=== PATIENT | female | born 1980 | race Caucasian/White ===

== ENCOUNTER 2022-04-30 13:26 | Outpatient (CLI) | payer BC, SELFPAY | END 2022-04-30 13:27 | disposition home or self-care (01) | LOC: NFLDREF 13:26 | PROVIDERS: PCP Internal Medicine; Visit Provider Internal Medicine | DX: Z01.419 Encounter for gynecological examination (general) (routine) without abnormal findings (principal); N92.0 Excessive and frequent menstruation with regular cycle; Z12.4 Encounter for screening for malignant neoplasm of cervix; Z11.3 Encounter for screening for infections with a predominantly sexual mode of transmission | CPT/HCPCS: 87624; 88175 ==

== ENCOUNTER 2022-05-31 14:42 | Outpatient (CLI) | payer BC, SELFPAY ==
--- NOTE | 2022-05-31 15:00 | CRLHL7_ITS ---
For Patients: As a result of the Century Cures Act, medical imaging exams and procedure reports are released immediately into your electronic medical record. You may view this report before your referring provider. If you have questions, please contact your health care provider. INDICATION: EXCESSIVE AND FREQUENT MENSTRUATION COMPARISON: none TECHNIQUE: 2D miranda scale and color Doppler images were acquired of the pelvis using a transabdominal and transvaginal approach. FINDINGS: Sonographic images demonstrate a normal size and smooth outer contour of the uterus. Uterus measures 7.5 cm in length by 4.5 cm in AP diameter by 5.5 cm in transverse dimension. The myometrium has a heterogeneous echotexture. There is a small intramural fibroid in the uterine fundus measuring 6 x 7 x 6 millimeters. A small posterior uterine fibroid is also present measuring 8 x 6 x 7 millimeters. The endometrial lining measures 4 mm in composite thickness. The right ovary measures 2.8 x 1.8 x 2.5 cm in size and the left ovary measures 2.8 x 1.9 x 2.1 cm. Right paraovarian cyst is present measuring 10 x 7 x 8 millimeters. The ovaries demonstrate normal arterial and venous blood flow on color Doppler analysis. There are no suspicious fluid collections within the cul-de-sac. Mild pelvic free fluid noted. IMPRESSION: Small intramural fibroids measuring 7 millimeters and 8 millimeters. Endometrial thickness 4 millimeters. Dictated by Fredi Myers MD @ 05/31/2022 3:35:17 PM (Electronically Signed)
== END 2022-05-31 14:43 | disposition home or self-care (01) ==
LOC: US 14:42
PROVIDERS: PCP Internal Medicine; Visit Provider Obstetrics & Gynecology
DX: N93.9 Abnormal uterine and vaginal bleeding, unspecified (principal); D25.1 Intramural leiomyoma of uterus; R93.89 Abnormal findings on diagnostic imaging of other specified body structures
CPT/HCPCS: 76830; 76856

== ENCOUNTER 2022-12-07 15:02 | Outpatient (CLI) | payer BC, SELFPAY ==
--- NOTE | 2022-12-07 15:20 | CRLHL7_ITS ---
For Patients: As a result of the Century Cures Act, medical imaging exams and procedure reports are released immediately into your electronic medical record. You may view this report before your referring provider. If you have questions, please contact your health care provider. BILATERAL SCREENING MAMMOGRAM WITH COMPUTER-AIDED DETECTION AND TOMOSYNTHESIS TECHNIQUE: CC and MLO views were obtained. These mammographic images have been obtained using full-field digital technique. These mammographic images were interpreted with the benefit of computer-aided detection. Breast Tomosynthesis was used in this interpretation. COMPARISON FILM: 11/29/21, 09/12/20, 09/04/19. FINDINGS: The breasts are heterogeneously dense, which may obscure small masses IMPRESSION: There is no radiographic evidence for malignancy. ASSESSMENT: BI-RADS Category 2: Benign RECOMMENDATION: Routine screening mammogram in 1 year. A lay language report of this examination will be provided to the patient. Fredi Myers M.D. Diagnostic Radiologist [email or web address] CHING/vinay Transcribed: 1:26 p.mCarter mclean/Dictated by: Fredi Myers MD @ 12/10/2022 12:38:00 PM (Electronically Signed)
== END 2022-12-07 15:03 | disposition home or self-care (01) ==
LOC: MAMMO 15:04
PROVIDERS: PCP Family Medicine; Visit Provider Family Medicine
DX: Z12.31 Encounter for screening mammogram for malignant neoplasm of breast (principal); R92.2 Inconclusive mammogram
CPT/HCPCS: 77063; 77067

== ENCOUNTER 2023-09-11 12:49 | Inpatient (IN) | payer BC, SELFPAY ==
[2023-09-10] VITALS (25 sets, daily range): BP systolic 111–155; BP diastolic 57–92; PULSE 77–93; RESP 12–18; TEMP 36.1–37.2; O2SAT 90–100; BMI 26.6
--- OUTSIDE RECORDS SUMMARY | 2023-09-10 07:08 | XMS_ITS | Patient Health Record ---
Author Name Unknown Organization [facility] Address [address] [place] [address] Care Team Providers [facility] Receptionist Name Role Phone None, No PCP Primary Care Provider Unavailrohit Saldaña Azeb Unavailable [phone] OsvaldoBrian Unavailable [phone] ZuleikaRober shultz Unavailable [phone] ALLERGIES No Known Allergies RESULTS Component Value Reference Range Notes ESTRADIOL Reviewed date:04/18/2023 01:42:10 PM Interpretation: Performing Lab:JALIL TykoonCathie Azmx5491 [facility] Carlos A IczyJK[address] Ovidio Hanna Notes/Report: 0; 0; 0; 0; 0; 0; 0; 0; 0; 0 ESTRADIOL 81 Reference Range Follicular Phase: 19-144 Mid-Cycle: 64-357 Luteal Phase: 56-214 Postmenopausal: < or = 31 Reference range established on post-pubertal patient population. No pre-pubertal reference range established using this assay. For any patients for whom low Estradiol levels are anticipated (e.g. males, pre-pubertal children and hypogonadal/post-menopausal females), the [facility] Estradiol, Ultrasensitive, LCMSMS assay is recommended (order code 56860). Please note: patients being treated with the drug fulvestrant (Faslodex(R)) have demonstrated significant interference in immunoassay methods for estradiol measurement. The cross reactivity could lead to falsely elevated estradiol test results leading to an inappropriate clinical assessment of estrogen status. [facility] order code [id number], Ultrasensitive LC/MS/MS demonstrates negligible cross reactivity with fulvestrant. DHEA SULFATE Reviewed date:04/18/2023 01:42:10 PM Interpretation: Performing Lab:JALIL ARC [facility] Devicese[address], TrovixJedjEX[address] Ovidio Hanna Notes/Report: 0; 0; 0; 0; 0; 0; 0; 0; 0; 0 DHEA SULFATE 237 15-205 mcg/dL DHEA-S values fall with advancing age. For reference, the reference intervals for 31-40 year old patients are: Male: 93-415 mcg/dL Female: 19-237 mcg/dL FSH Reviewed date:04/18/2023 01:42:10 PM Interpretation: Performing Lab:JALIL ARC [facility] Devicese[address] [address], [place] OfmbOU[address] Ovidio Hanna Notes/Report: 0; 0; 0; 0; 0; 0; 0; 0; 0; 0 FSH 4.6 Reference Range Follicular Phase 2.5-10.2 Mid-cycle Peak 3.1-17.7 Luteal Phase 1.5- 9.1 Postmenopausal 23.0-116.3 LH Reviewed date:04/18/2023 01:42:10 PM Interpretation: Performing Lab:JALIL ARC [facility]e13[address], [place] ZurdDO[address] Ovidio Hanna Notes/Report: 0; 0; 0; 0; 0; 0; 0; 0; 0; 0 LH 1.6 Reference Range Follicular Phase 1.9-12.5 Mid-Cycle Peak 8.7-76.3 Luteal Phase 0.5-16.9 Postmenopausal 10.0-54.7 PROLACTIN Reviewed date:04/18/2023 01:42:10 PM Interpretation: Performing Lab:JALIL TykoonTwonese1355 [address] [employer], [place] UwfyWJ[address] Ovidio Hanna Notes/Report: 0; 0; 0; 0; 0; 0; 0; 0; 0; 0 PROLACTIN 15.9 Reference Range Females Non- 3.0-30.0 10.0-209.0 Postmenopausal 2.0-20.0 CORTISOL, TOTAL Reviewed date:04/18/2023 01:42:10 PM Interpretation: Performing Lab:JALIL [employer], TrovixDsmrQM[address] Ovidio Hanna Notes/Report: 0; 0; 0; 0; 0; 0; 0; 0; 0; 0 CORTISOL, TOTAL 11.0 Reference Range: For 8 a.m.(7-9 a.m.) Specimen: 4.0-22.0 Reference Range: For 4 p.m.(3-5 p.m.) Specimen: 3.0-17.0 * Please interpret above results accordingly * TSH Reviewed date:04/18/2023 01:42:10 PM Interpretation: Performing Lab:JALIL Ty[facility]-[employer] Qlkm8149 [facility] HospitalOjmvNN[address] Ovidio Hanna Notes/Report: 0; 0; 0; 0; 0; 0; 0; 0; 0; 0 TSH 1.50 Reference Range > or = 20 Years 0.40-4.50 Ranges First trimester 0.26-2.66 Second trimester 0.55-2.73 Third trimester 0.43-2.91 SEX HORMONE BINDING GLOBULIN Reviewed date:04/18/2023 01:42:10 PM Interpretation: Performing Lab:JALIL TykoonTwonese1355 [facility] HospitalUrbhHE[address] Ovidio Hanna Notes/Report: 0; 0; 0; 0; 0; 0; 0; 0; 0; 0 SEX HORMONE BINDING GLOBULIN 77 17-124 nmol/ L TESTOSTERONE, TOTAL, LC/MS/M S Reviewed date:04/22/2023 04:02:06 PM Interpretation: Performing Lab:Angelita [facility]-ZzcOjyapu[address] [place] [address], [facility] 1100[facility] HospitalYnnezpzzpbHN[address] Donny Lundberg MD Notes/Report: 0; 0; 0; 0; 0; 0; 0; 0; 0; 0 TESTOSTERONE, TOTAL, MS 17 2-45 ng/dL For additional information, please refer to https://education.Y-Klub/faq/TotalTestosteroneLCMSMS (This link is being provided for informational/educational purposes only.) (Note) This test was developed and its analytical performance characteristics have been determined by [employer]. It has not been cleared or approved by the FDA. This assay has been validated pursuant to the CLIA regulations and is used for clinical purposes. med fusion [address] [address],[address] [facility] [address] Donny Lundberg MD TESTOSTERONE, FREE Reviewed date:04/22/2023 04:02:06 PM Interpretation: Performing Lab:Z3E, MedFusion-[address]jt[address] [address], [address], UwleedgsujJP[address] Donny Lundberg MD Notes/Report: 0; 0; 0; 0; 0; 0; 0; 0; 0; 0 TESTOSTERONE, FREE 1.0 0.2-5.0 pg/mL (Note) The concentration of free testosterone is derived from a mathematical model using total testosterone by LCMSMS, sex hormone binding globulin and albumin. This test was developed and its analytical performance characteristics have been determined by [facility]. It has not been cleared or approved by the FDA. This assay has been validated pursuant to the CLIA regulations and is used for clinical purposes. MD med fusion [address] [address],[address] [facility] [address] Donny Lundberg MD ESTRADIOL Reviewed date:07/09/2023 12:05:00 PM Interpretation: Performing Lab:Danica JIMENES-Carlos A Fyqw3786 [facility] HospitaleIL[address] Ovidio Hanna Notes/Report: 0; 0; 0 ESTRADIOL 39 Reference Range Follicular Phase: 19-144 Mid-Cycle: 64-357 Luteal Phase: 56-214 Postmenopausal: < or = 31 Reference range established on post-pubertal patient population. No pre-pubertal reference range established using this assay. For any patients for whom low Estradiol levels are anticipated (e.g. males, pre-pubertal children and hypogonadal/post-menopausal females), the [facility] Estradiol, Ultrasensitive, LCMSMS assay is recommended (order code 91910). Please note: patients being treated with the drug fulvestrant (Faslodex(R)) have demonstrated significant interference in immunoassay methods for estradiol measurement. The cross reactivity could lead to falsely elevated estradiol test results leading to an inappropriate clinical assessment of estrogen status. Ty[facility] order code [id number], Ultrasensitive LC/MS/MS demonstrates negligible cross reactivity with fulvestrant. FSH Reviewed date:07/09/2023 12:05:00 PM Interpretation: Performing Lab:Danica JIMENES-Carlos [address], Carlos A ZajvFI[address] Ovidio Hanna Notes/Report: 0; 0; 0 FSH 7.3 Reference Range Follicular Phase 2.5-10.2 Mid-cycle Peak 3.1-17.7 Luteal Phase 1.5- 9.1 Postmenopausal 23.0-116.3 TESTOSTERONE, TOTAL, LC/MS/M S Reviewed date:07/09/2023 12:05:00 PM Interpretation: Performing Lab:Angelita Med[facility]-NydOdpbhr3464 [facility] [address], [address], IvcogototzKE[address] Donny Lundberg MD Notes/Report: 0; 0; 0 TESTOSTERONE, TOTAL, MS 57 2-45 ng/dL For additional information, please refer to https://education.Indigeo Virtuscom/faq/TotalTestosteroneLCMSMS (This link is being provided for informational/educational purposes only.) (Note) This test was developed and its analytical performance characteristics have been determined by [employer]. It has not been cleared or approved by the FDA. This assay has been validated pursuant to the CLIA regulations and is used for clinical purposes. APRIL med fusion [address] [address],[address] [facility] [address] Donny Lundberg MD REASON FOR REFERRAL No Information MEDICATIONS Medication SIG (Take, Route, Frequency, Duration) Notes Start Date End Date Status flovent HFA Active buPROPion HCl 150 mg Active Prometrium 200 MG 1 capsule Orally at bedtime starting mid cycle and stop when period starts for 90 days 06/26/2023 Active Lexapro 10 MG 1 tablet Orally Once a day for 90 days 05/13/2023 Active Nexplanon 68 MG as directed Subcutaneous removed March 2023 Active Testosterone cream 5mg / 2 clicks apply 2 clicks daily Active Ventolin HFA Active Magnesium Glycinate 665 MG as directed Orally Active SOCIAL HISTORY Tobacco Use: Social History Observation Description Date Details (start date - stop date) Never Smoker NA - NA Sex Assigned At : Social History Observation Description Sex Assigned At Unknown Tobacco Use/Smoking Question Answer Notes Are you a nonsmoker Alcohol Screen (Audit-C) Question Answer Notes Did you have a drink containing alcohol in the p ast year? Yes Points 0 Interpretation Negative PROBLEMS Problem Type ICD Code Onset Dates Problem Status W/U Status Risk SNOMED Code Notes Problem Adenomyosis (N80.0) Active confirmed Endometriosis o f uterus (73317536) Problem PMS (premenstrual syndrome) (N94.3) Active confirmed 37660602 Problem Menopausal and perimenopausal disorder (N95.9) Active confirmed Menopausal and postmenopausal disorders (783368378) Problem Ovarian cyst (N83.209) Active confirmed Ovarian cyst (83325691) Problem Myoma (D21.9) Active confirmed Myoma (5525828350) Problem Menopausal problem (N95.9) Active confirmed Menopausal problem (60547131) Problem Mild anxiety (F41.9) Active confirmed Mild anxiety (95609479) Problem Adenomyosis (N80.03) Active confirmed VITAL SIGNS Blood pressure diastolic 92 mm Hg 05/22/2023 Height 66.50 in 05/22/2023 Blood pressure systolic 142 mm Hg 05/22/2023 Weight 169.8 lbs 05/22/2023 BMI 26.99 kg/m2 05/22/2023 Encounters Encounter Location Date Provider Diagnosis [facility] [address] [place] [address] 06/07/2023 [facility] [address] [place] [address] 03/11/2023 [facility] [address] [place] [address] 03/11/2023 [facility] [address] [place] [address] 05/14/2023 [facility] [address] [place] [address] 06/04/2023 [facility] [address] [place] [address] 07/02/2023 [facility] [address] [place] [address] 07/04/2023 [facility] [address] [place] [address] 07/09/2023 [facility] [address] [place] [address] 05/22/2023 Rober To Myoma D21.9 ; Adenomyosis N80.03 and Ovarian cyst N83.209 [facility] [address] [place] [address] 06/18/2023 [facility] Menopausal and perimenopausal disorder N95.9 [facility] [address] [facility] [place] [address] 04/17/2023 [facility] Menopausal problem N95.9 [facility] [address] [place] [address] 05/13/2023 [facility] Pelvic pain R10.2 [facility] [address] [place] [address] 05/13/2023 [facility] Menopausal and perimenopausal disorder N95.9 ; Fibroids D21.9 and Mild anxiety F41.9 [facility] [address] [place] [address] 06/25/2023 [facility] [address] [place] [address] 05/01/2023 [facility] Menopausal and perimenopausal disorder N95.9 [facility] [address] [place] [address] 06/26/2023 Brian Riley Mild anxiety F41.9 ; Menopausal and perimenopausal disorder N95.9 ; Fibroids D21.9 ; PMS (premenstrual syndrome) N94.3 and Tiredness R53.83 [facility] [address] [place] [address] 03/14/2023 [facility] Nexplanon in place Z97.5 [facility] [address] [place] [address] 03/14/2023 [facility] ASSESSMENTS Encounter Date Diagnosis Assessment Notes Treatment Notes Treatment Clinical Notes 05/22/2023 Myoma (ICD-10 - D21.9) 05/22/2023 Adenomyosis (ICD-10 - N80.03) 05/13/2023 Menopausal and perimenopausal disorder (ICD-10 - N95.9) 05/13/2023 Pelvic pain (ICD-10 - R10.2) 05/01/2023 Menopausal and perimenopausal disorder (ICD-10 - N95.9) Detailed discussion with patient regarding lab results and current symptoms. Discussed with patient recommendation for pelvic US to assess current state of fibroids prior to initiation of HRT. Will plan for a follow up visit after the US to review report and further explore options for testosterone replacement. Patient verbalizes agreement to the plan of care. This visit was conducted with the use of audio and video telecommunications system that permits real time communication between the patient and provider. Patient consent for virtual visit was obtained. Originating Site: [facility] Site: patient home Start Time: 799 End Time: 827. Time spent on patient care included, review of previous records, preparation for visit, reviewing labs, ordering imaging, documenting visit, direct face to face time with patient to obtain relevant history, and discussion of plan of care. Total time was 35 minutes. 03/14/[address] (ICD-10 - Z97.5) Detailed discussion with patient to review her symptoms. She states that she was not having the intense mood issues until she had the Nexplanon placed. She states that she no longer desires to have the Nexplanon and she would like to have it removed. She is aware that she can schedule a removal here or with the provider that placed the Nexplanon for her. She is encouraged to track her symptoms after removal and she can always follow up to discuss hormones or options to control her bleeding. Patient verbalizes understanding to the plan care. Time spent on patient care included, review of previous records, preparation for visit, documenting visit, direct face to face time with patient to obtain relevant history, and discussion of plan of care. Total time was 45 minutes. 06/26/2023 Menopausal and perimenopausal disorder (ICD-10 - N95.9) 06/26/2023 Mild anxiety (ICD-10 - F41.9) 06/18/2023 Menopausal and perimenopausal disorder (ICD-10 - N95.9) 05/22/2023 Ovarian cyst (ICD-10 - N83.209) 06/26/2023 Fibroids (ICD-10 - D21.9) 04/17/2023 Menopausal problem (ICD-10 - N95.9) 05/13/2023 Fibroids (ICD-10 - D21.9) 05/13/2023 Mild anxiety (ICD-10 - F41.9) 06/26/2023 PMS (premenstrual syndrome) (ICD-10 - N94.3) 06/26/2023 Tiredness (ICD-10 - R53.83) 05/22/2023 Other 25 minutes spen t on the date of the encounter doing chart review, history and exam, documentation and further activities per the note 06/26/2023 Other Keep T cream same - or can add 1 add'l click if she would like to trial Refill Lexapro Add luteal phase progesterone 200mg, day start day 14-16 until menses for PMS Add Vitex/chaste tree chen 250mg daily, work up [id number] max Add fish oil 3000mg daily for PMS/cramps REcheck testosterone in 8-12 weeks; if still having fatigue call ahead and will add vit D, ferritin, B12, folate, CBC, CMP, A1-c This visit was conducted with the use of audio and video telecommunications system that permits real time communication between the patient and provider. Patient consent for virtual visit was obtained. Originating site: [facility] location Distant site: pt home Start time: 0800 Stop time: 08 f/u with dr. To as planned, f/u with me 2-3 mos3 min visit prep; 22 min video visit, 7 min documentation PLAN OF TREATMENT No Information Insurance Providers Payer Name Payer Address Payer Phone Subscriber Number Group Number Insured Name Patient Relationship to Insured Coverage Start Date Coverage End Date [employer]BS [address] [address] [place], [place] [id number] Yojana Murrell Self - patient is the insured MEDICAL (GENERAL) HISTORY Medical History History ICD Code asthma depression Uterine fibroids Surgical History Surgery Date(Month/Year) MCL/ACL/Meniscus 11/2020 myomectomy 06/2021
[2023-09-10] MEDS: LACTATED RINGERS 1000 ML 1,000 ML 100 ML IV ×2 (07:33→10:06)
[2023-09-10] MEDS: SODIUM CHLORIDE 0.9 % (FLUSH) 10 ML SYRINGE IVF (07:33)
[2023-09-10 07:50] LABS: Hemoglobin* 13.6 gm/dL (12.0-16.0)
[2023-09-10 07:55] LABS: Ur HCG Qualitative* Negative (Negative)
[2023-09-10 08:09] LABS: Creatinine* 0.7 mg/dL (0.5-1.5); Est. Creatinine Clearance* 103.46; Estimated Glomerular Filt Rate 109 ml/min
--- NOTE | 2023-09-10 08:48 | W.PM.H&PU ---
History & Physical Update History & Physical Update H&P Reviewed and patient assessed: No changes noted
[2023-09-10] MEDS: CEFAZOLIN 2 GM INJ IVP (09:10)
[2023-09-10] MEDS: BUPIVACAINE 0.5% 30 ML INJECTION ×2 (09:32→09:52)
--- NOTE | 2023-09-10 11:16 | SUR.OPER ---
Call placed to family, update given.
--- NOTE | 2023-09-10 12:32 | PM.PROC ---
Procedure Note Time Seen by Provider: 12:32 Date Seen: 09/10/23 Date of procedure: 09/10/23 Will [facility] bill your pro fee for this procedure?: Yes Procedure: PREOPERATIVE DIAGNOSIS: Yojana is a 42-year-old with uterine fibroids, PMS and severe dysmenorrhea. POSTOPERATIVE DIAGNOSIS: Same. NAME OF PROCEDURE: 1. Lipoma removal 2. Attempted laparoscopic hysterectomy converted to total abdominal hysterectomy. 3. Bilateral salpingo oophorectomy 4. Lysis of adhesions SURGEON: Yudy Santamaria MD SIZE TESTER: Daina Lewis MD CONSULTING SURGEON: Patricia Luciano MD ANESTHESIA: General endotracheal. Local. ESTIMATED BLOOD LOSS: 400 ml URINE OUTPUT: 200 mL clear urine at the end of the procedure IV FLUID: 1500 mL DRAINS: Parnell to gravity. FINDINGS: On exam under anesthesia there was a the 2 x 3 cm cystic mass verses lipoma on the upper inner right thigh that was removed. Uterus palpated less than 10 week size mobile without masses palpable which sounded to 10 cm. No adnexal mass or fullness palpable. On laparoscopy there were multiple loops of intestine adherent to the anterior abdominal wall which made the laparoscopy untenable. On laparotomy there were thick adhesions of the rectus muscles to the anterior abdominal wall and this took 60 minutes of time to take down all the adhesions and obtain hemostasis from the started the procedure to entering the abdominal cavity. PROCEDURE: After obtaining informed consent, the patient was taken to the operating room where general anesthesia was obtained without difficulty. She was prepared and draped in the normal sterile fashion in the dorsal lithotomy position. A Parnell catheter was inserted sterilely into the bladder Attention was turned to performing the lipoma removal. The base of the lipoma was instilled with 0.5% Marcaine without epinephrine. In eyelet-shaped incision was made around the base of the lipoma and the lipoma was then removed. Subcutaneous tissue was reapproximated using 4-0 Monocryl interrupted sutures. The skin was repaired using 4-0 Monocryl in a running subcuticular manner. Exofin adhesive gel was then applied. Attention was turned to performing the laparoscopic portion of the procedure. A sterile, bivalve, open-sided speculum was placed in the vaginal canal to visualize the cervix. The cervix was grasped with a long Allis clamp in the uterus sounded to 10 cm. A large [employer] uterine manipulator was then placed. All incisions were instilled with 0.5% Marcaine prior to making skin incision. A vertical, 1 cm infraumbilical incision was made. A 11. Trocar was then placed under direct visualization with the laparoscoped. Findings were stated above. The decision was made to convert to a laparotomy. The trocar was removed the CO2 gas allowed to escape this trocar prior to its removal. The fascia was reapproximated using 0 Vicryl on a UR6 needle. The skin incision was repaired with 4-0 Vicryl in a running subcuticular manner and Exofin skin adhesive was applied. Attention was then turned performing the laparotomy. Prior to making the skin incision, it was injected with 10 mL of 0.50% Marcaine. A Pfannenstiel skin incision was made with a scalpel. This incision was carried down to the underlying layer of fascia with the Bovie. The fascia was incised in the midline and the incision extended laterally. The superior and inferior aspects of the fascial incision were grasped with Cori clamps and the underlying rectus muscles dissected off sharply. The rectus muscles were in the midline. The underlying peritoneum was identified and entered bluntly. The peritoneal incision was extended superiorly and inferiorly with good visualization of the bladder. Adhesions of the sigmoid colon to the anterior abdominal wall were then identified and this is when Dr. Luciano was consulted to perform the lysis of adhesions of the sigmoid colon and loop of the mid ileum was performed. Please see her note for complete details. The patient was placed in some mild Trendelenburg positioning. The bowels were packed cephalad using a large moistened laparotomy sponge. The Tyson O retractor was placed in the incision. This provided excellent visualization of the pelvis. The pelvis was inspected with the findings noted above. Holly clamps were placed at the cornua bilaterally for traction. Both ureters were identified along their courses within the pelvic sidewall by palpation by palpation, patient body habitus made limited visualization. The left round ligament was doubly clamped with Cori clamps, transected, and suture ligated with 0 Vicryl. The anterior leaf of the broad ligament was opened to the midline from the right side. Down to the level of the cervix. The posterior leaf of the broad ligament was then divided using bipolar cautery. The left fallopian tube and ovary were elevated with Stevo clamps. The infundibulopelvic ligament was doubly Justine clamped, divided and doubly suture ligated with 0 Vicryl suture. The left tube and ovary were removed to promote visualization and the pedicle ligated with a fore-after stitch using 0 Vicryl. Excellent hemostasis was identified. The uterine vessels were skeletonized on the left side. The vessels were clamped across with a Justine and a straight clamp, transected, and suture ligated. Excellent hemostasis was obtained. Attention was then turned to the right side. The right round ligament was clamped with 2 Cori clamps, transected, and suture ligated with 0-Vicryl. The anterior leaf of the broad ligament was opened from the right side to the midline. The bladder flap was then created bluntly. The bladder was further pushed caudally with a sponge stick. The right posterior leaf of the broad ligament was opened and the infundibulopelvic ligament doubly Justine clamped, divided and doubly suture ligated with 0 Vicryl suture. Hemostasis was visualized. The right uterine vessels were skeletonized and then clamped across with Justine clamps, transected, and suture ligated. Excellent hemostasis was obtained. At this point the enlarged uterus was removed from the cervix using Barney scissors. The cervix was then grasped with 2 Cori clamps. The remaining cardinal and uterosacral ligament attachments on both sides were clamped with straight Justine clamps adjacent to the lower uterine segment and cervix, transected and suture ligated with 0 Vicryl. Excellent hemostasis was obtained. Two Justine clamps were placed across the vaginal cuff angles. The uterus with attached cervix was then transected and passed off the field. The vaginal cuff angles were fixed with Justine stitches of 0 Vicryl. The intervening vaginal cuff was closed with [id number]-[id number]-mnwzu sutures of 0 Vicryl. The abdomen and pelvis were then copiously irrigated. Small bleeding vessels were isolated with DeBakey clamps and cauterized for hemostasis. Roma was applied to the vaginal cuff to obtain hemostasis. All laparotomy sponges, bowel pack and instruments were then removed. The subfascial tissues were carefully inspected and hemostasis assured. The fascia was re-approximated in a running fashion with a looped 0 Maxon suture. The subcutaneous tissues were copiously irrigated and hemostasis assured. The subcutaneous adipose layer was re-approximated in layers using 3-0 plain gut interrupted sutures. The skin was closed in a subcuticular fashion with 4-0 Monocryl. Exofin skin adhesive and a Mepilex dressing applied. The patient tolerated the procedure well. Sponge, lap, needle, instrument counts were reported as correct x2. The patient was taken to recovery room awake and in stable condition. She received 2 g of IV Ancef preoperatively. PATHOLOGY SPECIMEN(S): 1. Lipoma. 2. Uterus with cervix, bilateral tubes and ovaries
--- NOTE | 2023-09-10 12:57 | W.ANESCHARGE ---
Anesthesia Charges Start Date/Time Anesthesia Start Date: 09/10/23 Anesthesia Start Time: 09:02 Stop Date/Time Anesthesia Stop Date: 09/10/23 Anesthesia Stop Time: 12:55
[2023-09-10] MEDS: fentaNYL 100 MCG/2 ML inj 50 MCG IVP (13:15)
[2023-09-10] MEDS: HYDROmorphone 0.5 mg/0.5 ml inj IVP ×2 (13:16→15:16)
--- NOTE | 2023-09-10 13:16 | W.PM.NB ---
Nerve Block Nerve Block Time Seen by Provider: 09:19 Date Seen: 09/10/23 Type of block requested by surgeon for post-operative analgesia: TAP Side: bilateral Time out performed: Yes Verification of patient name: Yes Verification of date of : Yes Site marking: site marked Name of person performing procedure: Jose G Continuous monitoring Was continuous monitoring of O2 sat, B/P, cardiac/vascular sonographer, recorded every 15 minutes?: Yes Procedure Checklist: sterile prep, needles and gloves Ultrasound guided. Images saved: Yes Medications given in 5ml increments after negative aspiration: Marcaine %: 0.25 mL: 30 Needle gauge: 20 and Exparel mL: 10 Patient tolerated procedure well: Yes Additional comments: Needle noted between internal oblique and transversus abdominus. Local spread visualized Block Charges Block Charge (with Pro Fee): TAP Bilateral Use of Ultrasound Machine for Block: Yes- US Guidance/pain block
--- NOTE | 2023-09-10 13:17 | W.ANESCHARGE ---
Anesthesia Charges Start Date/Time Anesthesia Start Date: 09/10/23 Anesthesia Start Time: 09:02 Stop Date/Time Anesthesia Stop Date: 09/10/23 Anesthesia Stop Time: 12:55
--- NOTE | 2023-09-10 13:41 | PM.GSPRC ---
Operative Note Date of procedure: 09/10/23 Type of Procedure: 1. Intraoperative consult for lysis of adhesions. Procedure Description: Patient was undergoing laparoscopic converted to open hysterectomy. During opening the abdomen adhesions of the large intestine and small intestine to the abdominal wall were noted. These adhesions were dense and general surgery was requested to assist with lysis of adhesions. When I entered the room, the patient was already under general anesthesia. A Pfannenstiel incision was already made and abdomen was entered with sigmoid colon visualized through the abdominal incision. The sigmoid colon was adherent to the right side of the abdominal peritoneum. These adhesions were taken down with Metzenbaum scissors. When the sigmoid colon was free, I examined the serosa. No serosal tears were noted. I then palpated the peritoneum of the abdominal wall and a segment of small intestine was adherent on the right. There appeared to be a small fascial opening suggestive of abdominal wall hernia. Small intestine was attached in this area. This segment of small intestine was then mobilized off the abdominal wall with Metzenbaum scissors. These adhesions were fairly dense. When the small intestine was free, I examined the small intestine. A serosal tear was noted. This was oversewn with interrupted 3-0 silk sutures is using Lambert stitches. The small bowel was palpated and was patent. This was located approximately mid ileum. The remainder of the abdominal wall adjacent to the Phannesteil incision was palpated and no additional adhesions were noted. At this time I left the operating room and OBGYN surgeons continued with the rest of the procedure. Surgeon: Isabell Haro MD Estimated blood loss (mL): 1 Condition: stable Disposition: no change
[2023-09-10] MEDS: LACTATED RINGERS 1000 ML 1,000 ML 125 ML IV (13:50)
--- NOTE | 2023-09-10 14:33 | PC.NURSE ---
Pt was sating at 89%-91% Room Air when she is sleeping. When she is awake and talking pt is sating around 96%-100%. RN placed pt on 2L Nasal Cannula. RN also let Dr. Santamaria know that pt is on 2L of oxygen.
[2023-09-10] MEDS: KETOROLAC 30 MG/ML inj IVP ×2 (16:02→22:26)
[2023-09-10] MEDS: ACETAMINOPHEN 500 MG TABLET 1000 MG PO (20:42)
[2023-09-10] MEDS: MONTELUKAST 10 MG TABLET PO (20:42)
[2023-09-11] VITALS (7 sets, daily range): BP systolic 103–128; BP diastolic 65–72; PULSE 80–87; RESP 16–18; TEMP 36.6–37.5; O2SAT 95–99
[2023-09-11] MEDS: KETOROLAC 30 MG/ML inj IVP ×3 (04:01→16:19)
[2023-09-11 05:28] LABS: Hemoglobin* 11.4 gm/dL (12.0-16.0)
[2023-09-11] MEDS: ACETAMINOPHEN 500 MG TABLET 1000 MG PO ×3 (07:53→20:41)
[2023-09-11] MEDS: OXYCODONE 5 MG TABLET PO ×3 (07:53→20:41)
--- NOTE | 2023-09-11 08:31 | P.GYNPN_ITS ---
SENIOR PROJECT CONTROLS SPECIALIST - A/P Postoperative Procedures: Procedures Operation Date: 09/10/23 08:40 Actual Procedure Side Surgeon p Lipoma Removal, Attempted Total Laparoscopic Hysterectomy, Converted to Total Abdominal Hysterectomy, Lysis of Adhesions, Bilateral Salpingectomy-Oophorectomy Yudy Santamaria MD s Lysis of Adhesions Not Applicable Isabell Haro MD Time Spent With Patient Time: Total time spent is greater than 50% in coordination of care (as documented) at patient's floor/unit and/or counseling patient: Time with patient: less than 15 minutes SENIOR PROJECT CONTROLS SPECIALIST- PN:Subj Post-Op Subjective Time Seen by Provider: 08:10 Date Seen: 09/11/23 Post Operative Details: Subjective: Yojana is a 42-year-old 0 para 0 who is postop day [] from a total abdominal hysterectomy, bilateral salpingo oophorectomy, lysis of adhesions for symptomatic uterine fibroids, severe dysmenorrhea and premenstrual syndrome. She is doing well today. She states her pain is well controlled. She is tolerating regular diet. She denies nausea/vomiting. She is urinating without difficulty. Has had adequate urine output. She has been ambulating without difficulty. She is not passing flatus. Objective: General: Pleasant, , well groomed woman in no acute distress. Vital signs: Per electronic medical record Heart: Regular rate and rhythm without gallop, rub or murmur. Chest: Clear to auscultation bilaterally. Abdomen: Soft, nontender, mildly distended. No CVA or flank tenderness. Incision: Dressing removed. Incision clean, dry and intact with sutures and skin adhesive gel Extremities: No pain or edema Assessment: 38-year-old postoperative day# 1 from a total abdominal hysterectomy, bilateral salpingo oophorectomy, lysis of adhesions. Plan: 1. Continue routine postop care. 2. Planning discharge home tomorrow 3. Ordered a Pulmicort nebulizing treatment b.i.d. as the patient is out of her Advair inhaler. SENIOR PROJECT CONTROLS SPECIALIST-PN: Obj Exam Physical Exam: Vital signs: Temp Pulse Resp BP Pulse Ox O2 Del Method O2 Flow Rate 98.1 F 80 16 128/72 96 Room Air 2 09/11/23 07:56 09/11/23 07:56 09/11/23 07:56 09/11/23 07:56 09/11/23 07:56 09/11/23 07:56 09/10/23 17:41 Urinary Catheter Management: 2-way Urethral: Cath placed during this visit: yes Urethral indwelling: No Reason for continuing: surgical procedure Insertion date: 09/10/23 Insertion time: 09:32 SENIOR PROJECT CONTROLS SPECIALIST - PN: Obj Data Labs Labs: Laboratory Results - last 24 hr 09/10/23 09/11/23 07:41 05:20 Hgb 11.4 L Blood Type A Negative Antibody Screen NEGATIVE
[2023-09-11] MEDS: estradioL 1 MG TABLET PO (09:19)
[2023-09-11] MEDS: ESCITALOPRAM 10 MG TABLET 15 MG PO (09:19)
[2023-09-11] MEDS: buPROPion XL 150 MG TABLET PO (09:20)
[2023-09-11] MEDS: BUDESONIDE 0.25 MG/2 ML AMPUL.NEB NEB ×2 (09:23→20:41)
--- NOTE | 2023-09-11 10:22 | RESP.RT ---
Budesonide nebulizer treatment given with on demand nebulizer with mouth piece and 0xygen flow meter at 6 Lpm. Patient used treatment well. Discussed with patient use of extension with her MDI's and gave patient extension. Discussed timing of puffs, waiting at least a minute between. Information given on dry power Advair and use. Patient very knowledgeable about her respiratory medications and asked appropriate questions.
[2023-09-11] MEDS: MONTELUKAST 10 MG TABLET PO (20:42)
[2023-09-12] MEDS: IBUPROFEN 600 MG TABLET PO ×2 (00:13→08:38)
[2023-09-12 00:14] VITALS: BP 118/81; PULSE 76; RESP 16; TEMP 36.5; O2SAT 99
[2023-09-12 03:33] VITALS: BP 113/74; PULSE 98; RESP 14; TEMP 36.8; O2SAT 96
[2023-09-12] MEDS: ACETAMINOPHEN 500 MG TABLET 1000 MG PO (03:36)
[2023-09-12] MEDS: OXYCODONE 5 MG TABLET PO ×2 (03:36→08:39)
--- NOTE | 2023-09-12 07:57 | P.DS_ITS ---
DS: Providers Provider Time Seen by Provider: 07:58 Date Seen: 09/12/23 Date of admission: 09/11/23 12:49 Primary care physician: Evelyn Morales MD Admitting Clinician: Yudy Santamaria MD Attending Physician on discharge: Yudy Santamaria MD Date of Discharge: 09/12/23 DS: Diagnosis Discharge Diagnosis (1) Intramural uterine fibroid: Status: Acute (2) Dysmenorrhea: Status: Acute (3) Premenstrual syndrome: Status: Acute (4) Menorrhagia: Status: Acute (5) Status post total abdominal hysterectomy and bilateral salpingo- oophorectomy: Status: Acute OIL WELL PUMPER-Discharge Summary Hospital Course Hospital Course Narrative: Hospital Course: Yojana was admitted to the hospital on [date] for a scheduled JANESSA/BSO/EDIE. Her surgery was uncomplicated. Her postoperative course was also uncomplicated. By postoperative day 2, she was tolerating a regular diet, ambulating without difficulty, passing flatus and pain was well controlled with oral pain medications. She would like to be discharged home today. Labs: Preoperative hemoglobin 13.6, postoperative hemoglobin 11.4. Objective: General: Alert and oriented x3. Pleasant, woman in no acute distress. Vital signs: See EMR. Heart: Regular rate and rhythm without gallop, rub or murmur. Chest: Clear to auscultation bilaterally. Abdomen: Soft, nontender, nondistended with normal bowel sounds throughout. No CVA or flank tenderness. Incision(s): Clean, dry and intact w/ sutures and skin adhesive. Pelvic: Minimal vaginal bleeding, remainder of pelvic exam deferred. Extremities: No pain, edema, cyanosis or clubbing. Assessment: 42-year-old postoperative day 2 from a total abdominal hysterectomy, bilateral salpingo oophorectomy, lysis of adhesions, doing well. Plan: 1. Discharge home today. 2. Activity restrictions reviewed with the patient. 3. Return to clinic to see Dr. Santamaria for a postoperative visit in 2-3 weeks Na 2nd postoperative visit at approximately 6 weeks postop. Time Spent with Patient Time attestation: Total time spent providing and/or coordinating discharge services: Time spent: Less than 30 minutes OIL WELL PUMPER - Exam Physical Exam: Vital signs: Temp Pulse Resp BP Pulse Ox O2 Del Method O2 Flow Rate 98.2 F 98 14 113/74 96 Room Air 2 09/12/23 03:33 09/12/23 03:33 09/12/23 03:33 09/12/23 03:33 09/12/23 03:33 09/12/23 03:33 09/10/23 17:41 OIL WELL PUMPER - DS: Data Procedures Procedures: Procedures Operation Date: 09/10/23 08:40 Actual Procedure Side Surgeon p Lipoma Removal, Attempted Total Laparoscopic Hysterectomy, Converted to Total Abdominal Hysterectomy, Lysis of Adhesions, Bilateral Salpingectomy-Oophorectomy Yudy Santamaria MD s Lysis of Adhesions Not Applicable Isabell Haro MD Discharge Plan Discharge Disposition: Home, Self-Care Date of Admission: 09/11/23 12:49 Primary Care Provider: Evelyn Morales Condition: Stable Anticipated Discharge Date/Time: 09/12/23 10:30 Discharge Medications: New docusate sodium 100 mg Capsule 100 mg PO BID PRN (Reason: Constipation) Qty: 100 0RF ibuprofen 600 mg Tablet 600 mg PO Q6H PRN (Reason: Pain) Qty: 30 0RF oxycodone 5 mg Tablet 5 mg PO 3XD PRN (Reason: Moderate Pain) Qty: 21 0RF estradiol 0.1 mg/24 hr patch semiweekly 1 patch transdermal 2XW Qty: 24 4RF Rx Instructions: apply 1 patch for 3 days alternating with 1 patch for 4 days each week for 3 wks per 4-wk cycle Continued escitalopram oxalate 10 mg tablet 10 mg PO DAILY testosterone 50 mg/5 gram (1 %) gel 1 tube transdermal QAM escitalopram oxalate 5 mg tablet 5 mg PO QDAY melatonin 5 mg capsule 10 mg PO .Bedtime as needed PRN multivitamin Tablet 1 tab PO QDAY tretinoin 0.05 % cream 1 applic topical ONCE montelukast 10 mg tablet 10 mg PO .Bedtime Qty: 90 3RF fluticasone propionate 50 mcg/actuation spray,suspension 2 spray intranasal DAILY Qty: 16 6RF bupropion HCl 150 mg tablet extended release 24 hr 150 mg PO QAM fluticasone propion-salmeterol [Advair Diskus] 250-50 mcg/dose blister with device 1 inh INHALATION BID albuterol sulfate [Ventolin HFA] 90 mcg/actuation HFA aerosol inhaler 2 puff inhalation Q4-6H PRN (Reason: shortness of breath or wheezing) Qty: 8 10RF Discontinued peg 3350-electrolytes [Golytely] 236-22.74-6.74 -5.86 gram recon soln 240 ml PO Q15M Qty: 4000 0RF Rx Instructions: until fecal effluent is clear Discharge Orders: Discharge Order (Routine); Ordered 09/12/23 Ordered By: Yudy Santamaria Patient Education: Menopause (GEN), Hysterectomy (DC) Additional Instructions: ACTIVITY RESTRICTIONS: * Nothing vaginally for 6 weeks: no tampons/intercourse * No driving while taking narcotic pain medication during the day. 1-2 weeks. Okay to be the passenger anytime. * Lifting restriction: Maximum of 20 pounds for 6 weeks. * High impact or core exercises: 6 weeks. * Submerge the incisions in water (bath/pool/nagy): 2 weeks. * Off of work/school for a minimum of 6 weeks NO RESTRICTIONS for: * Walking or other low impact exercise * Going up/down stairs * Showering Symptoms to report to your doctor * Bleeding that is red, like a moderate period * Passing clots larger than the size of a golf ball * Pain not relieved by prescribed medication * Fever above 100.4 degrees Fahrenheit * A foul vaginal odor * Decrease in urination or painful, frequent urinating * Chest pain * Shortness of breath * Tenderness or pain with redness and/swelling in the calf(s) of your leg Follow-up Appointments: 1. [facility] 2-3 weeks for an incision check. 2. A 6 week postop visit to verify that the vaginal cuff is well-healed. Activity Detail: See activity restrictions above. Discharge Diet: Regular Follow Up Appointments: Evelyn Morales MD [Primary Care Provider] - Yudy Santamaria MD [Staff Physician] - Forms: Work/School Release
[2023-09-12 08:30] VITALS: BP 116/73; PULSE 82; RESP 16; TEMP 36.7; O2SAT 97
[2023-09-12] MEDS: ESCITALOPRAM 10 MG TABLET 15 MG PO (08:38)
[2023-09-12] MEDS: buPROPion XL 150 MG TABLET PO (08:38)
[2023-09-12] MEDS: estradioL 1 MG TABLET PO (08:38)
[2023-09-12] MEDS: BUDESONIDE 0.25 MG/2 ML AMPUL.NEB NEB (08:38)
== END 2023-09-12 09:11 | disposition home or self-care (01) | DRG 519 ==
LOC: OR 15:07 → OB 15:07
PROVIDERS: Obstetrics & Gynecology; Surgery; Admitting Provider Obstetrics & Gynecology; PCP Family Medicine; Visit Provider Obstetrics & Gynecology
PROC: 0UT94ZZ Resection of Uterus, Percutaneous Endoscopic Approach (ICD-10-PCS; principal; 2023-09-10 08:30)
PROC: 0DNW0ZZ Release Peritoneum, Open Approach (ICD-10-PCS; CPT 56740; 2023-09-10 08:30)
DX: D25.1 Intramural leiomyoma of uterus (principal); N92.0 Excessive and frequent menstruation with regular cycle; N94.3 Premenstrual tension syndrome; N94.6 Dysmenorrhea, unspecified; K66.0 Peritoneal adhesions (postprocedural) (postinfection); G89.18 Other acute postprocedural pain; Z53.31 Laparoscopic surgical procedure converted to open procedure; D17.23 Benign lipomatous neoplasm of skin and subcutaneous tissue of right leg
CPT/HCPCS: 00840; 36415; 64488; 76942; 81025; 82565; 85018; 86850; 86900; 86901; 88304; 88307; 94640; A9270; J0330; J0665; J0690; J1100; J1170; J1200; J1630; J1885; J2405; J2704; J3010; J3475; J3490; J7120; J7626

== ENCOUNTER 2024-04-21 11:01 | Outpatient (CLI) | payer BC, SELFPAY ==
--- OUTSIDE RECORDS SUMMARY | 2024-04-21 11:04 | XMS_ITS | Clinical Summary ---
Author Organization [facility] Address [place], [place] [address] Care Team Providers Care Snipper Name Role Phone Andrew, Evelyn Carrillo MD Primary Care Provider Geri Hernandez MD Unavailable [phone] Allergies Active Allergy Reactions Criticality Noted Date Comments Cats (Fur, Dander, Saliva) 8 House Dust 02/24/2008 Mold Extracts 02/24/2008 Homeopathic Products 02/24/2008 Medications Medication Sig Dispensed Refills Start Date End Date Status pirbuterol (MAXAIR AUTOHALER) 200 mcg/Inhalation inhalerIndications :Severe persistent asthma Inhale 2 Puffs by mouth. As needed 14 g 0 10/10/2010 Active MAXAIR AUTOHALER 200 mcg/Inhalation inhalerIndications :Unspecified asthma(493.90) INHALE 2 PUFFS NEEDED 14 g 0 04/29/2011 Active pirbuterol (MAXAIR AUTOHALER) 200 mcg/Inhalation inhalerIndications :Moderate persistent asthma Inhale 2 Puffs by mouth 3 times daily if needed for Wheezing. 14 g 6 04/30/2011 Active CETIRIZINE HCL (ZYRTEC ORAL) Take by mouth. Active montelukast (SINGULAIR) 10 mg tablet Take 10 mg by mouth at bedtime. 03/07/2022 Active Lexapro 10 mg tablet Take 10 mg by mouth. 05/13/2023 Active escitalopram oxalate (LEXAPRO) 5 mg tabletIndications: Anxiety Take 1 Tablet (5 mg) by mouth every morning. Take with 10 mg for total daily dose 15 mg. 90 Tablet 3 08/19/2023 Active estradiol 0.075 mg/24 hr SEMIWEEKLY patch Apply on dry, clean, hairless skin. 09/12/2023 Active tretinoin 0.01 % gel Apply topically to affected area(s). 04/30/2022 Active albuterol HFA (ProAir HFA) 90 mcg/actuation inhalerIndications :Asthma, unspecified asthma severity, unspecified whether complicated, unspecified whether persistent Inhale 2 Puffs by mouth every 4 hours if needed for Shortness Of Breath or Wheezing. 8.5 g 01/16/2024 Active polyethylene glycol-electrolyte (GOLYTELY) 236-22.74-6.74 -5.86 gram suspensionIndicati ons:Encounter for screening colonoscopy Drink 2 liters (half the bottle) the day before colonoscopy and 2 liters (remaining prep) 6 hours prior to colonoscopy appointment. 4000 mL 01/21/2024 Active doxycycline 100 mg capsuleIndications :Acute non-recurrent maxillary sinusitis,Moderate persistent asthma with exacerbation Take 1 Capsule (100 mg) by mouth two times daily. 10 Capsule 02/13/2024 Active fluticasone propion-salmeteroL (ADVAIR) 250-50 mcg/Dose diskus inhalerIndications :Moderate persistent asthma without complication Inhale 1 Puff by mouth two times daily. 60 Each 11 03/16/2024 Active fluticasone (50 mcg per actuation) nasal solution (FLONASE)Indicatio ns:Seasonal allergic rhinitis, unspecified trigger Inhale 1 [place] to both nostrils two times daily. 48 g 2 04/20/2024 Active fluticasone (50 mcg per actuation) nasal solution (FLONASE)Indicatio ns:Seasonal allergic rhinitis, unspecified trigger Inhale 1 [place] to both nostrils two times daily. 16 g 11 04/04/2023 Discontinue d(Reorder (E-cancel not sent)) Active Problems Problem Noted Date Diagnosed Date Thyroid nodule 08/06/2022 Overview: 9 mm, recheck 07/2023 Moderate persistent asthma without complication 07/25/2022 Severe persistent asthma 10/10/2010 Allergic rhinitis, cause unspecified 03/04/2009 Resolved Problems Problem Noted Date Diagnosed Date Resolved Date Unspecified asthma(493.90) 02/24/2008 0 10/10/2010 Encounters Date Type Department Care Team Description 04/17/2024 Refill [facility] [address] [place] [address] Evelyn Morales MD Refill Request; FLUTICASONE 03/27/2024 Telephone [facility] [address] [place] [address] David Santoyo MD Appointment Reminder (Colonoscopy on 03/31/2024 arriving at 1500) 03/04/2024 Telephone [facility] [address] [place] [address] David Santoyo MD Appointment Reminder (Colonoscopy 03/12/24) 02/13/2024 3:45 PM CDT Telemedicine [facility] [address] [place] [address] Asha Montes PA URTri 02/13/2024 Travel 01/21/2024 Telephone [facility] [address] [place] [address] David Santoyo MD Screening from Last 3 Months Immunizations Name Administration Dates Next Due Influenza, IIV3 (Age >=3 years) 06/30/20 12,07/23/2011,08/21/2010,2008,07/31/1997,08/14/1996,07/29/1995,1 11/19/1993 Influenza, IIV4 08/19/2023 Influenza,CCIIV4 PRESERV FREE 06/13/2022 MMR 05/18/1996 Td, Preservative Free (age > = 7 Years) 05/06/2018 Tdap 08/08/2016,02/24/2008 Family History Medical History Relation Name Comments Diabetes Brother Good Health Father Diabetes Maternal Grandmother Heart Disease Maternal Grandmother [place] at 75 Diabetes Mother Good Health Mother pre-diabetes Diabetes Paternal Grandmother Cancer-breast No Family History Cancer-colon No Family History Relation Name Status Comments Brother Father Maternal Grandmother Mother Paternal Grandmother Social History Tobacco Use Types Packs/Day Years Used Date Smoking Tobacco: Former Smokeless Tobacco: Never Tobacco Cessation:Counseling Given: Yes Comments:on weekend when she drinks or when she is stressed Alcohol Use Standard Drinks/Week Comments Yes 5 (1 standard drink = 0.6 oz pure alcohol) 1-2 times per week, from 1-5 drinks per time PHQ-2 Answer Date Recorded PHQ-2 TOTAL SCORE 0 04/22/2023 Social Connections Answer Date Recorded Frequency of Communication with Friends and Fami ly 0 08/19/2023 Financial Resource Strain Answer Date R ecorded Difficulty of Paying Living Expenses 3 08/19/2023 Difficulty of Paying Living Expenses Not on file 08/19/2023 Food Insecurity Answer Date Recorded Worried About Running Out of Food in the Last Ye ar 1 08/19/2023 Transportation Needs Answer Date Record ed Lack of Transportation (Medical) 1 08/19/2023 Housing Stability Answer Date Recorded Unable to Pay for Housing in the Last Year 1 08/19/2023 Sex and Gender Information Value Date Recorded Sex Assigned at Not on file Gender Identity Not on file Sexual Orientation Not on file Obstetrics History Last Filed Vital Signs Vital Sign Reading Time Taken Comments Blood Pressure 113/83 01/13/2024 7:09 AM CDT Pulse 87 01/13/2024 7:09 AM CDT Temperature 36.7 ??C (98.1 ??F) 04/30/2011 6:28 PM CD T Respiratory Rate - - Oxygen Saturation 96% 01/13/2024 7:09 AM CDT Inhaled Oxygen Concentration - - Weight 84.8 kg (187 lb) 01/13/2024 7:09 AM CDT Height 172.7 cm (5' 8) 01/13/2024 7:09 AM CDT Body Mass Index 28.43 01/13/2024 7:09 AM CDT Plan of Treatment Health Maintenance Due Date Last Done Comments Pneumococcal series for age 6-64 (1 of 2 - PCV) 1984 COVID-19 vaccine series ( - 2022- season) 2023 06/13/2022, 07/27/2021, 01/13/2021, Additional history exists Colonoscopy through age 75 2023 Mammogram for age 45-75 12/08/2023 12/07/2022 Depression screening for age 12+ 04/22/2024 04/22/20 23, 04/22/2023 Influenza for age 9-49 05/24/2024 3, 06/13/2022, 06/30/2012, Additional history exists BMI (ht and wt on same day) for age 18+ 01/12/2025 01/13/2024, 08/19/2023, 04/22/2023, Additional history exists Pap test for age 21-65 04/30/2025 2, 04/30/2022, 02/06/2016, Additional history exists Tetanus booster 05/06/2028 05/06/2018, 07/24, 02/24/2008 Lipids for age 45-75 08/19/2028 08/19/2023, 07/25/2022, 10/13/2008 Tdap Completed 08/08/2016, 02/24/2008 Hepatitis C screening for ag e 18-79 Completed 07/25/2022 HIV for age 15-65 Completed 08/19/2023 Procedures Procedure Name Priority Date/Time Associated Diagnosis Comments ANTI HIV 1/2 Routine 08/19/2023 8:04 AM [facility] Screening for HIV (human immunodeficiency virus) LIPID PANEL W REFLEX MEASURED LDL Routine 08/19/2023 8:04 AM [facility] Lipid screening SCAN-MAMMOGRAPHY REPORT 12/07/2022 12:00 AM CDT ANTI HCV Routine 07/25/2022 2:09 PM CDT Need for hepatitis C screening test HPV THIN PREP Routine 04/30/2022 1:30 PM CDT from Last 3 Months or Most Recently Relevant to Health Maintenance Results * (ABNORMAL) LIPID PANEL W REFLEX MEASURED LDL (08/19/2023 8:04 AM [facility]) CHOLESTEROL,TOTAL 212(H) 100 - 199 mg/dL 08/19/2023 2:11 PM [facility] Comment: Cholesterol, Total Reference Ranges Desirable <200 mg/dL Borderline 200-239 mg/dL High >=240 mg/dL TRIGLYCERIDES 138 <150 mg/dL 08/19/2023 2:11 PM [facility] HDL CHOLESTEROL 70 >40 mg/dL 2:11 PM [facility] NON-HDL CHOLESTEROL 142 <145 mg/dl 08/19/2023 2:11 PM [facility] CHOL/HDL RATIO 3.03 <4.50 08/19/2023 2:11 PM [facility] LDL CHOLESTEROL 114 <=130 mg/dL 08/19/2023 2:11 PM [facility] VLDL CHOLESTEROL 28 <=30 mg/dL 08/19/2023 2:11 PM [facility] PROVIDER ORDERED STATUS RANDOM 08/19/2023 2:11 PM [facility] Blood BLOOD SPECIMEN / Unknown Venipuncture / Unknown 08/19/2023 8:04 AM [facility] 08/19/2023 8:05 AM [facility] Evelyn Morales MD CHEMISTRY [facility] [address] [place] [address], * ANTI HIV 1/2 [19382.0] (08/19/2023 8:04 AM [facility]) HIV-1/HIV-2 SCREEN Non-Reacti ve Non-Reacti ve 08/19/2023 1:39 PM [facility] Comment:HIV-1 p24 and HIV-1/ HIV-2 Ab Not Detected. Blood BLOOD SPECIMEN / Unknown Venipuncture / Unknown 08/19/2023 8:04 AM [facility] 08/19/2023 8:05 AM [facility] Evelyn Morales MD SEND OUTS [facility] [address] [place] [address], [place] * SCAN-MAMMOGRAPHY REPORT (12/07/2022 12:00 AM CDT) Anatomical Region Laterality Modality Other Scanner OTHER * ANTI HCV (07/25/2022 2:09 PM CDT) HEPATITIS C ANTIBODY Non-React cristel Non-React cristel 07/26/2022 2:12 PM CDT [facility] Comment:Antibodies to HCV no t detected; does not exclude the possibility of exposure to HCV. Blood BLOOD SPECIMEN / Unknown Venipuncture / Unknown 07/25/2022 2:09 PM CDT 07/25/2022 2:12 PM CDT Evelyn Morales MD SEND OUTS Performing Organization Address [facility] Co de Phone Number [facility] [address] [place] [address], * HPV HIGH RISK (04/30/2022 1:30 PM CDT) TYPE 16 Negative Negative 05/04/2022 2:22 PM CDT [facility] TYPE 18 Negative Negative 05/04/2022 2:22 PM CDT [facility] OTHER HIGH RISK TYPES Negative Negative 05/04/2022 2:22 PM CDT [facility] Other (Cervical) 04/30/2022 1:30 PM CDT 05/02/2022 10:39 AM CDT Narrative [facility] - 05/04/2022 2:22 PM CDT HPV types 16, 18, 31, 33, 35, 39, 45, 51, 52, 56, 58, 59, 66 and 68 DNA were undetectable or below the pre-set threshold. Methodology: [employer] [place] 4800 HPV Test Geri Hernandez MD MICROBIOLOGY Performing Organization Address City/[facility]/ZIP Co de Phone Number [facility] Function [facility] [address] [place] [address], from Last 3 Months or Most Recently Relevant to Health Maintenance Care Teams Snipper Relationship Specialty Start Date End Date Evelyn Morales MD [address] [place] [address] PCP - General Family Practice 07/25/22 Geri Hernandez MD [address] [place] [address] Internal Medicine 07/25/22
--- OUTSIDE RECORDS SUMMARY | 2024-04-21 11:04 | XMS_ITS | Patient Health Record ---
Author Organization [facility] Address [address] [place] [address] Care Team Providers Care Child Advocate Name Role Phone None, No PCP Primary Care Provider UnavailAzeb Schreiber Unavailable [phone] AlekBrian schaefer Unavailable [phone] Rober To Unavailable [phone] Allergies No Known Allergies Results Component Value Reference Range Notes TESTOSTERONE, TOTAL, LC/MS/M S Reviewed date:07/09/2023 12:05:00 PM Interpretation: Performing Lab:[facility] [address], [address], [id number] Donny Lundberg MD Notes/Report: 0; 0; 0 TESTOSTERONE, TOTAL, MS 57 2-45 ng/dL [email or web address] (This link is being provided for informational/educational purposes only.) (Note) This test was developed and its analytical performance characteristics have been determined by [employer]. It has not been cleared or approved by the FDA. This assay has been validated pursuant to the CLIA regulations and is used for clinical purposes. [facility] [address] [facility] [address] [facility] [address] Donny Lundberg MD For additional information, please refer to [facility] Reviewed date:07/09/2023 12:05:00 PM Interpretation: Performing Lab:[facility], [facility], [id number] Ovidio Hanna Notes/Report: 0; 0; 0 FSH 7.3 Reference Range Follicular Phase 2.5-10.2 Mid-cycle Peak 3.1-17.7 Luteal Phase 1.5- 9.1 Postmenopausal 23.0-116.3 ESTRADIOL Reviewed date:07/09/2023 12:05:00 PM Interpretation: Performing Lab:[facility], [facility], [id number] Ovidio Hanna Notes/Report: 0; 0; 0 ESTRADIOL 39 Reference Range Follicular Phase: 19-144 Mid-Cycle: 64-357 Luteal Phase: 56-214 Postmenopausal: < or = 31 Reference range established on post-pubertal patient population. No pre-pubertal reference range established using this assay. For any patients for whom low Estradiol levels are anticipated (e.g. males, pre-pubertal children and hypogonadal/post-menopausal females), the [facility] Estradiol, Ultrasensitive, LCMSMS assay is recommended (order code 41887). Please note: patients being treated with the drug fulvestrant (Faslodex(R)) have demonstrated significant interference in immunoassay methods for estradiol measurement. The cross reactivity could lead to falsely elevated estradiol test results leading to an inappropriate clinical assessment of estrogen status. [facility] order code 64930-Nzizwarxb, Ultrasensitive LC/MS/MS demonstrates negligible cross reactivity with fulvestrant. Reason For Referral No Information Medications Medication SIG (Take, Route, Frequency, Duration) Notes Start Date End Date Status flovent HFA Active buPROPion HCl 150 mg Active Prometrium 200 MG 1 capsule Orally at bedtime starting mid cycle and stop when period starts for 90 days 06/26/2023 Active Nexplanon 68 MG as directed Subcutaneous removed March 2023 Active Lexapro 10 MG 1 tablet Orally Once a day for 90 days 05/13/2023 Active Testosterone cream 5mg / 2 clicks apply 2 clicks daily Active Ventolin HFA Active Magnesium Glycinate 665 MG as directed Orally Active Social History Tobacco Use: Social History Observation Description Date Details (start date - stop date) Never Smoker NA - NA Tobacco Use/Smoking Question Answer Notes Are you a nonsmoker Alcohol Screen (Audit-C) Question Answer Notes Did you have a drink containing alcohol in the p ast year? Yes Points 0 Interpretation Negative Problems Problem Type SNOMED Code ICD Code Onset Dates Problem Status W/U Status Risk Notes Problem Adenomyosis of uterus (disorder) (478113041) Adenomyosis (N80.0) Active confirmed Problem 09955761 PMS (premenstrua l syndrome) (N94.3) Active confirmed Problem Menopausal and postmenopausal disorders (828562569) Menopausal and perimenopausal disorder (N95.9) Active confirmed Problem Ovarian cyst (29958787) Ovarian cyst (N83.209) Active confirmed Problem Myoma (0834267928) Myoma (D21.9) Active confirmed Problem Menopausal problem (00673141) Menopausal problem (N95.9) Active confirmed Problem Mild anxiety (97454671) Mild anxiety (F41.9) Active confirmed Problem Adenomyosis of uterus (disorder) (049232160) Adenomyosis (N80.03) Active confirmed Vital Signs Blood pressure diastolic 92 mm Hg 05/22/2023 Height 66.50 in 05/22/2023 Blood pressure systolic 142 mm Hg 05/22/2023 Weight 169.8 lbs 05/22/2023 BMI 26.99 kg/m2 05/22/2023 Encounters Encounter Location Date Provider Diagnosis [address] [address] 05/13/2023 [facility] Menopausal and perimenopausal disorder N95.9 ; Fibroids D21.9 and Mild anxiety F41.[address] [address] 05/22/2023 Edward Zuleika Myoma D21.9 ; Adenomyosis N80.03 and Ovarian cyst N83.209 [facility] [address] [place] [address] 06/18/2023 [facility] Menopausal and perimenopausal disorder N95.9 [facility] [address] [place] [address] 05/13/2023 [facility] Pelvic pain R10.2 [facility] [address] [place] [address] 05/01/2023 [facility] Menopausal and perimenopausal disorder N95.9 [facility] [address] [place] [address] 06/26/2023 [facility] Mild anxiety F41.9 ; Menopausal and perimenopausal disorder N95.9 ; Fibroids D21.9 ; PMS (premenstrual syndrome) N94.3 and Tiredness R53.83 [facility] [address] [place] [address] 06/07/2023 [facility] [address] [place] [address] 09/30/2023 Brian Riley Mild anxiety F41.9 [facility] [address] [facility] [address] [place], [place] [id number] 10/01/2023 [facility] [address] [facility] [place] [address] 05/14/2023 [facility] [address] [facility] [address] 06/04/2023 [facility] [address] [place] [address] 07/02/2023 [facility] [address] [place] [address] 07/04/2023 [facility] [address] [place] [address] 07/09/2023 [facility] Assessments Encounter Date Diagnosis (ICD Code) Assessment Notes Treatment Notes Treatment Clinical Notes 05/01/2023 Menopausal and perimenopausal disorder (ICD-10 - [...] for virtual visit was obtained. Originating Site: [facility] Distant Site: patient home Start Time: 0800 End Time: 827. Time spent on patient care included, review of previous records, preparation for visit, reviewing labs, ordering imaging, documenting visit, direct face to face time with patient to obtain relevant history, and discussion of plan of care. Total time was 35 minutes. 05/13/2023 Pelvic pain (ICD-10 - R10.2) 05/13/2023 Menopausal and perimenopausal disorder (ICD-10 - N95.9) 05/22/2023 Myoma (ICD-10 - D21.9) 05/22/2023 Adenomyosis (ICD-10 - N80.03) 06/18/2023 Menopausal and perimenopausal disorder (ICD-10 - N95.9) 06/26/2023 Menopausal and perimenopausal disorder (ICD-10 - N95.9) 06/26/2023 Mild anxiety (ICD-10 - F41.9) 09/30/2023 Mild anxiety (ICD-10 - F41.9) 05/22/2023 Ovarian cyst (ICD-10 - N83.209) 06/26/2023 Fibroids (ICD-10 - D21.9) 05/13/2023 Fibroids (ICD-10 - D21.9) 05/13/2023 Mild [...] Vitex/chaste tree chen 250mg daily, work up [id number] max Add fish oil 3000mg daily for PMS/cramps REcheck testosterone in 8-12 weeks; if still having fatigue call ahead and will add vit D, ferritin, B12, folate, CBC, CMP, A1-c This visit was conducted with the use of audio and video telecommunications system that permits real time communication between the patient and provider. Patient consent for virtual visit was obtained. Originating site: [facility] location Distant site: pt home Start time: 08 Stop time: 821 f/u with dr. To as planned, f/u with me 2-3 mos3 min visit prep; 22 min video visit, 7 min documentation Plan Of Treatment No Information Insurance Providers Payer Name Payer Address Payer Phone Subscriber Number Group Number Insured Name Patient Relationship to Insured Coverage Start Date Coverage End Date [employer]BS - (Client Bill) [address] VERONICA MELLISSAYURIY [place] [id number] Yojana Murrell Self - patient is the insured Medical (General) History Medical History History ICD Code asthma depression Uterine fibroids Surgical History Surgery Date(Month/Year) MCL/ACL/Meniscus 11/2020 myomectomy 06/2021
--- NOTE | 2024-04-21 11:30 | CRLHL7_ITS ---
For Patients: As a result of the Century Cures Act, medical imaging exams and procedure reports are released immediately into your electronic medical record. You may view this report before your referring provider. If you have questions, please contact your health care provider. BILATERAL SCREENING MAMMOGRAM WITH COMPUTER-AIDED DETECTION AND TOMOSYNTHESIS TECHNIQUE: CC and MLO views were obtained. These mammographic images have been obtained using full-field digital technique. These mammographic images were interpreted with the benefit of computer-aided detection. Breast Tomosynthesis was used in this interpretation. COMPARISON FILM: 12/07/22, 11/29/21, 09/12/20. FINDINGS: The breasts are heterogeneously dense, which may obscure small masses IMPRESSION: There is no radiographic evidence for malignancy. ASSESSMENT: BI-RADS Category 2: Benign RECOMMENDATION: Routine screening mammogram in 1 year. A lay language report of this examination will be provided to the patient. Fredi Myers M.D. Diagnostic Radiologist [email or web address] CHING/vinay Transcribed: 1:55 p.troy mclean/Dictated by: Fredi Myers MD @ 04/21/2024 11:49:00 AM (Electronically Signed)
== END 2024-04-21 11:02 | disposition home or self-care (01) ==
LOC: MAMMO 11:02
PROVIDERS: PCP Family Medicine; Visit Provider Family Medicine
DX: Z12.31 Encounter for screening mammogram for malignant neoplasm of breast (principal); R92.2 Inconclusive mammogram
CPT/HCPCS: 77063; 77067